=== PATIENT | male | born 1990 | race Hispanic/Latino ===

== ENCOUNTER → 2021-11-18 | Outpatient (CLI) | payer OTHER | END | disposition home or self-care (01) | LOC: ICE 10:00 | PROVIDERS: ATTEND Internal Medicine Cardiovascular Disease | DX: U07.1 COVID-19 (principal) | CPT/HCPCS: 87635; C9803 ==

== ENCOUNTER → 2023-05-18 | Outpatient (CLI) | payer OTHER | END | disposition home or self-care (01) | LOC: RAH 11:40 | PROVIDERS: ATTEND Internal Medicine | DX: J98.4 Other disorders of lung (principal); R05.3 Chronic cough | CPT/HCPCS: 71046 ==

== ENCOUNTER → 2023-05-19 | Outpatient (CLI) | payer OTHER ==
[2023-05-19 09:07] LABS: BASOPHILS # (AUTO) 0.06 K/uL (0.00-0.20); BASOPHILS % (AUTO) 0.8 % (0.0-5.0); EOSINOPHILS # (AUTO) 0.19 K/uL (0.00-0.70); EOSINOPHILS % (AUTO) 2.5 % (0.0-8.0); HEMATOCRIT 46.6 % (42-54); IMMATURE GRANULOCYTE ABSOLUTE 0.03 K/uL (0-1); LYMPHOCYTES # (AUTO) 2.3 K/uL (1.0-4.8); LYMPHOCYTES % (AUTO) 31.4 % (21.0-51.0); MEAN CORPUSCULAR HEMOGLOBIN 28.7 pg (27.0-33.0); MEAN CORPUSCULAR VOLUME 82.2 fL (79-99); MONOCYTES # (AUTO) 0.6 K/uL (0.1-1.0); MONOCYTES % (AUTO) 7.9 % (3.0-13.0); NEUTROPHILS # (AUTO) 4.3 K/uL (1.8-7.7); PLATELET COUNT (AUTO) 291 K/uL (130-400); RED BLOOD CELL COUNT(AUTO) 5.67 MIL/uL (4.50-6.20); RED CELL DISTRIBUTION WIDTH 12.7 % (11.0-15.5); WHITE BLOOD COUNT (AUTO) 7.5 K/uL (4.8-10.8)
[2023-05-19 09:11] LABS: APPEARANCE,URINE CLEAR (CLEAR); BILIRUBIN,URINE NEGATIVE (NEGATIVE); COLOR,URINE LIGHT-YELLOW (YELLOW); GLUCOSE, URINE (UA) NEGATIVE (NEGATIVE); KETONES,URINE NEGATIVE (NEGATIVE); LEUKOCYTE ESTERASE ,URINE NEGATIVE Leu/uL (NEGATIVE); NITRATE,URINE NEGATIVE (NEGATIVE); OCCULT BLOOD,URINE NEGATIVE (NEGATIVE); PROTEIN,URINE NEGATIVE (NEGATIVE); UROBILINOGEN,URINE 0.2 mg/dL (0.2-1.0)
[2023-05-19 09:12] LABS: ADD UA MICROSCOPIC NO
[2023-05-19 09:12] LABS: HEMOGLOBIN A1C 5.6 % (4.0-6.0)
[2023-05-19 09:16] LABS: CREATININE,URINE RANDOM 94 mg/dL (30-135)
[2023-05-19 09:46] LABS: ALBUMIN 3.9 g/dL (3.5-5.0); BILIRUBIN,DIRECT 0.1 mg/dL (0.0-0.3); BILIRUBIN,TOTAL 0.6 mg/dL (0.2-1.0); CREATININE 0.7 mg/dL (0.5-1.5); POTASSIUM 3.7 mmol/L (3.5-5.1); THYROID STIMULATING HORMONE 3.08 uIU/mL (0.36-3.74); TOTAL PROTEIN, SERUM 7.6 g/dL (6.0-8.3); URIC ACID 5.7 mg/dL (2.6-7.2)
== END | disposition home or self-care (01) ==
LOC: LAB 08:24
PROVIDERS: ATTEND Internal Medicine
DX: Z13.220 Encounter for screening for lipoid disorders (principal); Z13.1 Encounter for screening for diabetes mellitus; E55.9 Vitamin D deficiency, unspecified; E53.8 Deficiency of other specified B group vitamins; J30.9 Allergic rhinitis, unspecified; I10 Essential (primary) hypertension; R53.83 Other fatigue; R05.1 Acute cough
CPT/HCPCS: 36415; 80053; 80061; 81003; 82248; 82306; 82570; 82607; 83036; 84443; 84550; 85025

== ENCOUNTER → 2023-07-12 | Outpatient (CLI) | payer OTHER ==
[2023-07-12 10:57] LABS: SARS-CoV-2, RNA, NAAT NEGATIVE SARS CoV-2 (NEGATIVE)
== END | disposition home or self-care (01) ==
LOC: LAB 10:11
PROVIDERS: ATTEND Hospitalist
DX: Z11.52 Encounter for screening for COVID-19 (principal); Z20.822 Contact with and (suspected) exposure to COVID-19
CPT/HCPCS: 87635

== ENCOUNTER 2024-03-13 05:00 | Inpatient (IN) | payer OTHER ==
[~2024-03-13] VITALS: Ht 175.3 cm; Wt 119.3 kg
[2024-03-13 06:19] LABS: BASOPHILS # (AUTO) 0.05 K/uL (0.00-0.20); BASOPHILS % (AUTO) 0.2 % (0.0-5.0); EOSINOPHILS # (AUTO) 0.01 K/uL (0.00-0.70); HEMATOCRIT 50.3 % (42-54); IMMATURE GRANULOCYTE ABSOLUTE 0.08 K/uL (0-1); LYMPHOCYTES # (AUTO) 0.7 K/uL (1.0-4.8); LYMPHOCYTES % (AUTO) 3.3 % (21.0-51.0); MEAN CORPUSCULAR HEMOGLOBIN 28.2 pg (27.0-33.0); MEAN CORPUSCULAR VOLUME 80.5 fL (79-99); MONOCYTES # (AUTO) 0.6 K/uL (0.1-1.0); MONOCYTES % (AUTO) 2.9 % (3.0-13.0); NEUTROPHILS # (AUTO) 18.9 K/uL (1.8-7.7); NEUTROPHILS % (AUTO) 93.2 % (40.0-77.0); PLATELET COUNT (AUTO) 386 K/uL (130-400); RED BLOOD CELL COUNT(AUTO) 6.25 MIL/uL (4.50-6.20); RED CELL DISTRIBUTION WIDTH 13.1 % (11.0-15.5); WHITE BLOOD COUNT (AUTO) 20.4 K/uL (4.8-10.8)
[2024-03-13] MEDS: ondanSETRON 4MG INJ IVP ONE (06:29)
[2024-03-13] MEDS: MAG/ALUM/SIMETH 30 ML UDCUP PO ONE (06:29)
[2024-03-13] MEDS: PANTOPrazole 40 MG/VIAL IVP ONE (06:29)
[2024-03-13] MEDS: LIDOCAINE HCL 2% VISCOUS 15 ML UDCUP PO ONE (06:29)
[2024-03-13] MEDS: LACTATED RINGERS 1000ML 1,000 ML IV ONE (06:30)
[2024-03-13 06:45] LABS: ALBUMIN 4.3 g/dL (3.5-5.0); BILIRUBIN,TOTAL 0.7 mg/dL (0.2-1.0); CREATININE 1.2 mg/dL (0.5-1.3); POTASSIUM 3.7 mmol/L (3.5-5.1); TOTAL PROTEIN, SERUM 8.5 g/dL (6.0-8.3)
[2024-03-13 07:02] LABS: SARS-CoV-2, RNA, NAAT NEGATIVE SARS CoV-2 (NEGATIVE)
[2024-03-13 07:07] LABS: INFLUENZA TYPE A Negative For Type A (NEGATIVE); INFLUENZA TYPE B Negative For Type B (NEGATIVE)
[2024-03-13 08:00] LABS: APPEARANCE,URINE CLOUDY (CLEAR); BILIRUBIN,URINE NEGATIVE (NEGATIVE); COLOR,URINE YELLOW (YELLOW); GLUCOSE, URINE (UA) 30 mg/dL (NEGATIVE); KETONES,URINE 5 mg/dL (NEGATIVE); LEUKOCYTE ESTERASE ,URINE NEGATIVE Leu/uL (NEGATIVE); NITRATE,URINE NEGATIVE (NEGATIVE); OCCULT BLOOD,URINE NEGATIVE (NEGATIVE); PH,URINE 5.5 (5.0-8.0); PROTEIN,URINE 100 mg/dL (NEGATIVE); UROBILINOGEN,URINE 0.2 mg/dL (0.2-1.0)
[2024-03-13 08:16] LABS: BACTERIA,URINE FEW /HPF (None Seen); HYALINE CASTS, URINE >100 /LPF (0-1 /LPF); MUCUS,URINE MANY LPF (None Seen); SQUAMOUS EPITHELIAL CELL,UR RARE /HPF (0-2)
[2024-03-13] MEDS: 0.9%NACL 1000ML 708 ML IV ONE (08:24)
[2024-03-13] MEDS ORDERED: ondanSETRON 4MG INJ IVP PRN (08:30)
[2024-03-13] MEDS: DEXTROSE 5 %-0.45 % NACL 1,000 ML IV SCH (08:30)
[2024-03-13] MEDS: cefTRIAXone 1G VIAL IVPB SCH (08:42)
[2024-03-13] MEDS: PANTOPrazole 40 MG/VIAL IVP SCH (08:42)
[2024-03-13] MEDS ORDERED: MELO-108 PO (08:53)
[2024-03-13] MEDS ORDERED: AMLO-257 PO (08:53)
[2024-03-13] MEDS ORDERED: PHEN37.596 PO (08:53)
[2024-03-13] MEDS ORDERED: PANT40TA54 PO (08:53)
[2024-03-13 10:15] VITALS: BP 159/93; PULSE 128; RESP 22; TEMP 98.6
[2024-03-13 10:58] VITALS: O2SAT 98
[2024-03-13 11:50] VITALS: BP 103/81; PULSE 118; RESP 20; TEMP 98.9
[2024-03-13 15:40] VITALS: BP 132/86; PULSE 113; RESP 20; TEMP 98.3
[2024-03-13 20:00] VITALS: BP 144/86; PULSE 110; RESP 20; TEMP 110; O2SAT 98
[2024-03-14 00:10] VITALS: BP 148/89; PULSE 115; RESP 22; TEMP 98.2
[2024-03-14 04:37] LABS: BASOPHILS # (AUTO) 0.03 K/uL (0.00-0.20); BASOPHILS % (AUTO) 0.4 % (0.0-5.0); EOSINOPHILS # (AUTO) 0.16 K/uL (0.00-0.70); HEMATOCRIT 44.3 % (42-54); IMMATURE GRANULOCYTE ABSOLUTE 0.03 K/uL (0-1); LYMPHOCYTES # (AUTO) 1.3 K/uL (1.0-4.8); LYMPHOCYTES % (AUTO) 15.7 % (21.0-51.0); MEAN CORPUSCULAR HEMOGLOBIN 27.5 pg (27.0-33.0); MEAN CORPUSCULAR HGB CONC 33.4 g/dL (32.0-36.0); MEAN CORPUSCULAR VOLUME 82.3 fL (79-99); MONOCYTES % (AUTO) 12.8 % (3.0-13.0); NEUTROPHILS # (AUTO) 5.5 K/uL (1.8-7.7); NEUTROPHILS % (AUTO) 68.7 % (40.0-77.0); PLATELET COUNT (AUTO) 282 K/uL (130-400); RED BLOOD CELL COUNT(AUTO) 5.38 MIL/uL (4.50-6.20); RED CELL DISTRIBUTION WIDTH 13.3 % (11.0-15.5); WHITE BLOOD COUNT (AUTO) 8.1 K/uL (4.8-10.8)
[2024-03-14 04:50] LABS: ALBUMIN 3.3 g/dL (3.5-5.0); BILIRUBIN,TOTAL 0.6 mg/dL (0.2-1.0); CREATININE 1.1 mg/dL (0.5-1.3); MAGNESIUM 1.7 mg/dL (1.80-2.40); TOTAL PROTEIN, SERUM 6.7 g/dL (6.0-8.3)
[2024-03-14 05:03] LABS: POTASSIUM 2.8 mmol/L (3.5-5.1)
[2024-03-14] MEDS: acetaMINOPHEN 325 MG TAB PO PRN (05:42)
[2024-03-14] MEDS: PoTASSium chloRIDE 20MEQ/100ML 100 ML IV PRN (07:13)
[2024-03-14 07:30] VITALS: BP 154/91; PULSE 94; RESP 22; TEMP 98.4
[2024-03-14] MEDS ORDERED: PoTASSium chl 10% ELIXIR 20MEQ 20 MEQ/15 ML UDCUP PO PRN (07:30)
[2024-03-14 09:00] VITALS: O2SAT 98
[2024-03-14] MEDS: PHENTERMINE HCL 37.5 MG PO SCH (09:00)
[2024-03-14] MEDS: amLODIPine 5 MG TAB PO SCH (09:51)
[2024-03-14] MEDS: PoTASSium chloRIDE 20MEQ ER 20 MEQ ERTAB PO PRN (09:51)
[2024-03-14] MEDS: MELOXICAM 7.5 MG TABLET PO SCH (09:52)
[2024-03-14 11:51] VITALS: BP 162/93; PULSE 100; RESP 22; TEMP 98.2
[2024-03-14 15:30] VITALS: BP 122/76; PULSE 80; RESP 18; TEMP 98.6
[2024-03-14] MEDS: MAGNESIUM 2GM PREMIX 50ML 50 ML IV PRN (16:21)
[2024-03-14 20:00] VITALS: BP 128/72; PULSE 93; RESP 18; TEMP 98.5
[2024-03-15] VITALS: BP 135/79; PULSE 84; RESP 20; TEMP 97.6
[2024-03-15 04:00] VITALS: BP 128/76; PULSE 83; RESP 18; TEMP 98
[2024-03-15 07:42] VITALS: BP 130/86; PULSE 98; RESP 19; TEMP 98.8
[2024-03-15 08:09] LABS: CREATININE 0.9 mg/dL (0.5-1.3); POTASSIUM 3.5 mmol/L (3.5-5.1)
[2024-03-15] MEDS: PoTASSium chloRIDE 20MEQ ER 20 MEQ ERTAB PO ONE (08:41)
[2024-03-16 08:17] LABS: C DIFFICILE TOXIN A/B Not Detected (Not Detected); ENTEROAGGREGATIVE ECOLI Not Detected (Not Detected); GIARDIA LAMBLIA Not Detected (Not Detected); PLESIOMONAS SHIGELOIDES Not Detected (Not Detected); SAPOVIRUS Not Detected (Not Detected); SHIGELLA/ENTEROINVASIVE E COLI Detected (Not Detected); VIBRIO Not Detected (Not Detected); VIBRIO CHOLERAE Not Detected (Not Detected)
== END 2024-03-15 09:00 | disposition home or self-care (01) | DRG 641 ==
LOC: EDH 05:00 → OBSVTOIN 08:25 → EDHIP 08:25 → 4DH 09:39
PROVIDERS: ADMIT Internal Medicine; ATTEND Internal Medicine
DX: E86.0 Dehydration (principal); K52.9 Noninfective gastroenteritis and colitis, unspecified; Z20.822 Contact with and (suspected) exposure to COVID-19; E87.6 Hypokalemia; Z68.38 Body mass index [BMI] 38.0-38.9, adult; Z88.0 Allergy status to penicillin
CPT/HCPCS: 36415; 80048; 80053; 81001; 83690; 83735; 85025; 87086; 87507; 87635; 87804; 93005; 96375; G0378; J0696; J2405; J2470; J3475; J3480; J7120

== ENCOUNTER 2024-07-11 01:49 | Emergency (ER) | payer OTHER ==
[~2024-07-11] VITALS: Ht 175.3 cm; Wt 122.9 kg
[~2024-07-11 01:49] MED LIST: AMLO-257 PO; MELO-108 PO; PANT40TA54 PO; PHEN37.596 PO
[2024-07-11] MEDS: PANTOPrazole 40 MG/VIAL IVP ONE (03:27)
[2024-07-11] MEDS: hydrOXYzine 50MG VIAL 50 MG/ML VIAL IM STA (03:27)
[2024-07-11 03:29] LABS: BASOPHILS # (AUTO) 0.06 K/uL (0.00-0.20); BASOPHILS % (AUTO) 0.7 % (0.0-5.0); EOSINOPHILS % (AUTO) 1.1 % (0.0-8.0); HEMATOCRIT 45.3 % (42-54); IMMATURE GRANULOCYTE ABSOLUTE 0.02 K/uL (0-1); MEAN CORPUSCULAR HEMOGLOBIN 28.5 pg (27.0-33.0); MEAN CORPUSCULAR HGB CONC 35.3 g/dL (32.0-36.0); MEAN CORPUSCULAR VOLUME 80.6 fL (79-99); MONOCYTES # (AUTO) 0.7 K/uL (0.1-1.0); MONOCYTES % (AUTO) 8.4 % (3.0-13.0); NEUTROPHILS # (AUTO) 5.8 K/uL (1.8-7.7); NEUTROPHILS % (AUTO) 66.6 % (40.0-77.0); PLATELET COUNT (AUTO) 318 K/uL (130-400); RED BLOOD CELL COUNT(AUTO) 5.62 MIL/uL (4.50-6.20); RED CELL DISTRIBUTION WIDTH 12.7 % (11.0-15.5); WHITE BLOOD COUNT (AUTO) 8.7 K/uL (4.8-10.8)
[2024-07-11 03:37] LABS: APPEARANCE,URINE CLEAR (CLEAR); BILIRUBIN,URINE NEGATIVE (NEGATIVE); COLOR,URINE YELLOW (YELLOW); GLUCOSE, URINE (UA) NEGATIVE (NEGATIVE); KETONES,URINE NEGATIVE (NEGATIVE); LEUKOCYTE ESTERASE ,URINE NEGATIVE Leu/uL (NEGATIVE); NITRATE,URINE NEGATIVE (NEGATIVE); OCCULT BLOOD,URINE NEGATIVE (NEGATIVE); PH,URINE 5.5 (5.0-8.0); PROTEIN,URINE NEGATIVE (NEGATIVE); UROBILINOGEN,URINE 0.2 mg/dL (0.2-1.0)
[2024-07-11 03:42] LABS: ADD UA MICROSCOPIC NO
[2024-07-11 03:44] LABS: CREATININE 0.8 mg/dL (0.5-1.3); MAGNESIUM 2.1 mg/dL (1.80-2.40); POTASSIUM 3.5 mmol/L (3.5-5.1)
[2024-07-11 03:56] LABS: B-TYPE NATRIURETIC PEPTIDE < 5 pg/mL (0-100)
[2024-07-11] MEDS ORDERED: BUSP5TAB3 PO (04:11)
--- NOTE | 2024-07-11 04:11 | ERN ---
General Chief Complaint: Anxiety/Panic Attack Stated Complaint: C/O ANXIETY WITH CHEST DISCOMFORT Time Seen by MD: 01:51 Source: patient History of Present Illness Initial Comments Patient is a 33-year-old male coming in to be evaluated for anxiety. Patient states that his chest was hurting and he feels short of breath, this occurred earlier while arriving in the ER he states his symptoms have improved significantly. Allergies: Coded Allergies: Penicillins (Unverified Allergy, Unknown, 03/13/24) Home Meds Active Scripts Buspirone HCl (Buspirone HCl) 5 Mg Tablet, 1 TAB PO BID PRN for anxiety for 5 Days, #10 TAB 0 Refills Prov:DESIREE MEJIA MD 07/11/24 Reported Medications Phentermine HCl (Phentermine HCl) 37.5 Mg Tablet, 37.5 MG PO DAILY, TAB 03/13/24 Amlodipine Besylate (Amlodipine Besylate) 5 Mg Tablet, 5 MG PO DAILY, TAB 03/13/24 Meloxicam (Meloxicam) 15 Mg Tablet, 15 MG PO DAILY, TAB 03/13/24 Pantoprazole Sodium (Pantoprazole Sodium) 40 Mg Tablet.dr, 40 MG PO DAILY, TAB 03/13/24 Past Medical History Past Medical History: No Pertinent History Past Surgical History: None ROS Dictation CONSTITUTIONAL: No chills, no fever, no weakness, no diaphoresis, no malaise. HEAD/FACE: No signs of trauma. EENT: No eye pain, no blurred vision, no tearing, no double vision, no ear pain, no ear discharge, no nose pain, no nasal congestion, no throat pain, no throat swelling, no mouth pain. RESPIRATORY: No cough, no orthopnea, no SOB, no stridor, no wheezing. CARDIOVASCULAR: No chest pain, no edema, no palpitations, no syncope. GASTROINTESTINAL/ABDOMINAL: No abdominal pain, no constipation, no diarrhea, no nausea, no vomiting. GENITOURINARY: No abnormal discharge, no dysuria, no frequent urination, no hematuria. No complaints of pain in the genitals. MUSCULOSKELETAL: No back pain, no gout, no joint pain, no joint swelling, no muscle pain, no muscle stiffness, no neck pain. INTEGUMENTARY: No change in color, no change in hair/nails, no dryness, no lesion, no lumps, no rash. NEUROLOGICAL/PSYCH: No anxiety, not depressed, no emotional problem, no hea dache, no numbness, no pre-existing deficit, no history of seizures, no tremors, no weakness. HEMATOLOGIC/LYMPHATIC: Not anemic, no history of blood clots, no apparent bleeding, no bruising, glands not swollen. All Systems Negative, Except as Noted. Physical Exam Physical Exam Dictation VITAL SIGNS: Reviewed. GENERAL APPEARANCE: Alert, oriented x3, no acute distress, obese. HEAD AND FACE: Non-traumatic. EYES: PERRL, pink conjunctivas, eyelid no trauma, anterior chamber clear. EARS: Pinnas intact and no signs of trauma or erythema. Ear canals clear and no discharge. TMs no erythema. NOSE: No discharge, no bleeding. OROPHARYNX: Mouth normal, teeth no caries, tongue pink. Pharynx clear, no erythema. Tonsils no exudates, no abscesses noted. Mucous membrane moist. NECK: Supple, non-tender, no thyromegaly, no masses, no JVD, no bruits. BREAST: Deferred. CHEST: No tenderness, no crepitus, no paradoxical movement, no retractions. LUNGS: Clear, well-ventilated, symmetric, no rales, no wheezing, no rhonchi, no stridor, good breath sounds bilaterally. HEART: Regular rate, regular rhythm, no murmur, no gallops. VASCULAR: No peripheral edema. ABDOMEN: Soft, positive bowel sounds, nondistended, no guarding, nontender, no rebound, no masses no hepatomegaly, no splenomegaly, no Peterson's sign, no hernias. RECTAL: Deferred. GENITAL: Deferred. NEUROLOGICAL: Normal speech, gross motor function intact, gross sensory function intact. MUSCULOSKELETAL: Neck nontender, full range of motion, back nontender, full range of motion. EXTREMITIES: Nontender, full range of motion. SKIN: Color pink, dry, no turgor, no rash, no lacerations, no abrasions, no contusions. LYMPHATICS: Deferred. Results Laboratory and Microbiology Lab and Micro Result Laboratory Tests Test 07/11/24 03:20 07/11/24 03:25 07/11/24 03:52 White Blood Count 8.7 K/uL (4.8-10.8) Red Blood Count 5.62 MIL/uL (4.50-6.20) Hemoglobin 16.0 g/dL (14.0-18.0) Hematocrit 45.3 % (42-54) Mean Corpuscular Volume 80.6 fL (79-99) Mean Corpuscular Hemoglobin 28.5 pg (27.0-33.0) Mean Corpuscular Hemoglobin Concent 35.3 g/dL (32.0-36.0) Red Cell Distribution Width 12.7 % (11.0-15.5) Platelet Count 318 K/uL (130-400) Mean Platelet Volume 8.9 fL (7.5-10.5) Immature Granulocyte % (Auto) 0.2 % (0-1) Neutrophils (%) (Auto) 66.6 % (40.0-77.0) Lymphocytes (%) (Auto) 23.0 % (21.0-51.0) Monocytes (%) (Auto) 8.4 % (3.0-13.0) Eosinophils (%) (Auto) 1.1 % (0.0-8.0) Basophils (%) (Auto) 0.7 % (0.0-5.0) Neutrophils # (Auto) 5.8 K/uL (1.8-7.7) Lymphocytes # (Auto) 2.0 K/uL (1.0-4.8) Monocytes # (Auto) 0.7 K/uL (0.1-1.0) Eosinophils # (Auto) 0.10 K/uL (0.00-0.70) Basophils # (Auto) 0.06 K/uL (0.00-0.20) Absolute Immature Granulocyte (auto 0.02 K/uL (0-1) Nucleated Red Blood Cells 0.0 % (0.0-0.19) Sodium Level 139 mmol/L (136-145) Potassium Level 3.5 mmol/L (3.5-5.1) Chloride Level 101 mmol/L (101-111) Carbon Dioxide Level 29 mmol/L (21-32) Blood Urea Nitrogen 11 mg/dL (7-18) Creatinine 0.8 mg/dL (0.5-1.3) Glomerular Filtration Rate Calc 121 mL/min (>90) Random Glucose 107 mg/dL (70-105) H Total Calcium 9.1 mg/dL (8.5-10.1) Magnesium Level 2.10 mg/dL (1.80-2.40) Total Creatine Kinase 104 U/L (21-232) Troponin I High Sensitivity 5 ng/L (4-75) B-Type Natriuretic Peptide < 5 pg/mL (0-100) Urine Color YELLOW (YELLOW) Urine Appearance CLEAR (CLEAR) Urine pH 5.5 (5.0-8.0) Urine Specific [place] 1.025 (1.001-1.031) Urine Protein NEGATIVE mg/dL (NEGATIVE) Urine Glucose (UA) NEGATIVE mg/dL (NEGATIVE) Urine Ketones NEGATIVE mg/dL (NEGATIVE) Urine Occult Blood NEGATIVE (NEGATIVE) Urine Nitrate NEGATIVE (NEGATIVE) Urine Bilirubin NEGATIVE mg/dL (NEGATIVE) Urine Urobilinogen 0.2 mg/dL (0.2-1.0) Urine Leukocyte Esterase NEGATIVE Ankit/uL Influenza Type A Antigen Negative For Type A Influenza Type B Antigen Negative For Type B SARS-CoV-2, RNA, NAAT NEGATIVE SARS CoV-2 Labs Reviewed?: Yes EKG/XRAY/US/CT/MRI EKG Comment 07/11/2024 time 2:16 a.m. Ventricular rate 92 Sinus rhythm [place] [address] wave elevation or depression MDM MDM: Differential diagnosis: Anxiety, CHF, cough, URI, Patient is a 33-year-old gentleman coming in to be evaluated for anxiety. Patient states that the symptoms began earlier prior to arrival the ER. Arriv ing in the ER he states the symptoms had improved. Cardiac workup negative for acute findings. Patient was given an anxiolytic and states he feels much better. Patient will be discharged with a diagnosis of anxiety. ED Course Orders Procedure Category Date Status Time Cbc With Differential LAB 07/11/24 Complete 02:13 B-Type Natriuretic LAB 07/11/24 Complete Peptide 02:13 Chest 1vw RAD 07/11/24 Taken 02:13 12 Lead Ekg Tracing- EKG 07/11/24 Logged Technical 02:13 Magnesium LAB 07/11/24 Complete 02:13 Creatine Kinase, Total LAB 07/11/24 Complete 02:13 Troponin I High LAB 07/11/24 Complete Sensitivity 02:13 Urinalysis Profile LAB 07/11/24 Complete 02:13 Basic Metabolic Panel LAB 07/11/24 Complete 02:13 Covid Rna Naat LAB 07/11/24 Complete 02:13 Influenza Type A & B, LAB 07/11/24 Complete Rapid 02:13 Hydroxyzine 50mg Vial PHA 07/11/24 Complete (Atarax 50mg Inj) 02:13 Pantoprazole 40mg Inj PHA 07/11/24 Complete (Protonix 40mg Inj 02:30 Current Medications Medications (Trade) Dose Ordered Sig/Ashlee Route PRN Reason Start Time Stop Time Status Last Admin Dose Admin Hydroxyzine HCl (ATArax 50MG INJ) 25 mg ONCE STAT IM 07/11/24 02:13 07/11/24 02:14 DC 07/11/24 03:27 Pantoprazole Sodium (PROTonix 40MG INJ) 40 mg ONCE ONCE IVP 07/11/24 02:30 07/11/24 02:31 DC 07/11/24 03:27 Vital Signs Date Time Temp Pulse Resp B/P (MAP) Pulse Ox O2 Delivery O2 Flow Rate FiO2 07/11/24 01:50 97.9 96 20 137/86 99 Room Air DX & DISP Disposition: Discharge Departure Impression: Primary Impression: Anxiety Condition: Stable Scripts Buspirone HCl (Buspirone HCl) 5 Mg Tablet 1 TAB PO BID PRN for anxiety for 5 Days, #10 TAB 0 Refills Prov: DESIREE MEJIA MD 07/11/24 Additional Instructions: FOLLOW-UP WITH PRIMARY CARE PROVIDER IN 1 TO 2 DAYS. TAKE MEDICATIONS DIRECTED HERE IN THE EMERGENCY ROOM. OKAY TO CONTINUE HOME MEDICATIONS UNLESS OTHERWISE DISCUSSED DURING YOUR VISIT IN THE EMERGENCY ROOM TODAY. RETURN TO YOUR NEAREST EMERGENCY ROOM IF SYMPTOMS WORSEN OR IF THERE IS NO IMPROVEMENT. CALL 911 IF YOU NEED IMMEDIATE ASSISTANCE. TAKE TYLENOL [id number] NEEDED AND IF NO CONTRAINDICATIONS ARE PRESENT. INCREASE ORAL HYDRATION. A WOUND CULTURE OR URINE CULTURE WAS ORDERED HERE IN THE EMERGENCY ROOM DEPARTMENT PLEASE FOLLOW-UP WITH PRIMARY CARE PROVIDER AND ADVISE THEM TO GET REPEAT PORTS FROM OUR FACILITY. IF YOU HAD ANY TAHMINA WRAP/SPLINTS THAT WERE APPLIED HERE, PLEASE DO NOT REMOVE THEM UNTIL YOU SEE YOUR PRIMARY CARE OR SPECIALTY. Referrals: Referrals: SIOBHAN BAUMAN MD (PCP) Time of Disposition: 04:10 DESIREE MEJIA MD Jul 11, 2024 04:11
[2024-07-11 04:18] LABS: SARS-CoV-2, RNA, NAAT NEGATIVE SARS CoV-2 (NEGATIVE)
[2024-07-11 04:24] LABS: INFLUENZA TYPE A Negative For Type A (NEGATIVE); INFLUENZA TYPE B Negative For Type B (NEGATIVE)
[2024-07-11 04:35] VITALS: BP 132/65; PULSE 92; RESP 18; TEMP 98.5; O2SAT 100
--- NOTE | 2024-07-11 07:09 | EKG ---
[facility] Test Date: 2024-07-11 Test Time: 02:16:12 Pat Name: VAMSI SCOTT Department: [facility] Room: Gender: M [employer] Operator: [id number] 1990 Requested By: DESIREE MEJIA Order Number: [id number] Reading MD: Eric Talbot Measurements Intervals [place] Rate: 92 P: 27 DE: 136 QRS: -23 QRSD: 91 T: 39 QT: 346 QTc: 429 Interpretive Statements Sinus rhythm Compared to ECG 03/13/2024 07:08:35 Sinus tachycardia no longer present Electronically Signed On 07-11-2024 20:02:22 DANDY TENDER by Eric Talbot Please click the below link to view image of tracing.
--- NOTE | 2024-07-11 08:50 | HMCIMG ---
CHEST 1VW REASON: cp COMPARISON: 05/18/2023 FINDINGS: Single view of the chest was obtained. Lungs are clear. Heart size is normal. There is no pulmonary vascular congestion. Mediastinum and bony thorax appear unremarkable. IMPRESSION: 1. Normal single view chest x-ray.
== END 2024-07-11 04:40 | disposition home or self-care (01) ==
LOC: EDH 01:49
DX: F41.9 Anxiety disorder, unspecified (principal); Z79.1 Long term (current) use of non-steroidal anti-inflammatories (NSAID); Z79.899 Other long term (current) drug therapy; Z88.0 Allergy status to penicillin; Z20.822 Contact with and (suspected) exposure to COVID-19
CPT/HCPCS: 99285; 96374; 71045; 87635; 82550; 83735; 84484; 80048; 83880; 85025; 87804 ×2; 81003; 36415; 93005; 96372; J3410; J2470

== ENCOUNTER 2024-09-27 03:37 | Emergency (ER) | payer OTHER ==
[~2024-09-27] VITALS: Ht 175.3 cm; Wt 122.9 kg
[~2024-09-27 03:37] MED LIST changes: +BUSP5TAB3 PO
[2024-09-27 04:27] LABS: APPEARANCE,URINE CLEAR (CLEAR); BILIRUBIN,URINE NEGATIVE (NEGATIVE); COLOR,URINE LIGHT-YELLOW (YELLOW); GLUCOSE, URINE (UA) NEGATIVE (NEGATIVE); KETONES,URINE NEGATIVE (NEGATIVE); LEUKOCYTE ESTERASE ,URINE NEGATIVE Leu/uL (NEGATIVE); NITRATE,URINE NEGATIVE (NEGATIVE); OCCULT BLOOD,URINE NEGATIVE (NEGATIVE); PH,URINE 6.5 (5.0-8.0); PROTEIN,URINE NEGATIVE (NEGATIVE); UROBILINOGEN,URINE 0.2 mg/dL (0.2-1.0)
[2024-09-27 04:28] LABS: ADD UA MICROSCOPIC NO
--- NOTE | 2024-09-27 04:33 | ERN ---
General Chief Complaint: Abdominal Pain Stated Complaint: C/O EPIGASTRIC PAIN, SOB, NAUSEA, DIARRHEA Time Seen by MD: 04:29 History of Present Illness Initial Comments Patient is a 33-year-old male who had feeling of weirdness in his stomach early Tuesday morning and has had unremitting diarrhea nonbloody since then the pain is now throughout his entire stomach instead of being just subxiphoid. He states no fevers and and chills no upper respiratory tract infections beyond stuffy nose. He states he has been urinating more frequently but it is nonbloody. Allergies: Coded Allergies: Penicillins (Unverified Allergy, Unknown, 03/13/24) Home Meds Active Scripts Buspirone HCl (Buspirone HCl) 5 Mg Tablet, 1 TAB PO BID PRN for anxiety for 5 Days, #10 TAB 0 Refills Prov:DESIREE MEJIA MD 07/11/24 Reported Medications Phentermine HCl (Phentermine HCl) 37.5 Mg Tablet, 37.5 MG PO DAILY, TAB 03/13/24 Amlodipine Besylate (Amlodipine Besylate) 5 Mg Tablet, 5 MG PO DAILY, TAB 03/13/24 Meloxicam (Meloxicam) 15 Mg Tablet, 15 MG PO DAILY, TAB 03/13/24 Pantoprazole Sodium (Pantoprazole Sodium) 40 Mg Tablet.dr, 40 MG PO DAILY, TAB 03/13/24 Past Medical History Past Medical History: Anxiety, Hypertension Past Surgical History: None Constitutional: (-) chills, (-) diaphoresis, (-) fever, (-) malaise, (-) weakness, (-) other documentation EENTM: (-) eye pain, (-) blurred vision, (-) tearing, (-) double vision, (-) ear pain, (-) ear discharge, (-) nose pain, (-) nose congestion, (-) throat pain, (-) Throat swelling, (-) mouth pain, (-) tooth pain, (-) mouth swelling, (-) other documentation Respiratory: (-) cough, (-) orthopnea, (-) short of breath, (-) stridor, (-) wheezing, (-) other documentation Cardiovascular: (-) chest pain, (-) edema, (-) palpitations, (-) syncope, (-) dyspnea on exertion, (-) other documentation Gastrointestinal/Abdominal: (+) nausea, (+) diarrhea Musculoskeletal: (-) Neck pain, (-) back pain, (-) Flank Pain, (-) joint pain, (-) joint swelling, (-) muscle pain, (-) muscle stiffness, (-) gout, (-) other documentation Skin: (-) laceration, (-) contusion, (-) abrasion, (-) abscess, (-) rash, (-) change in color, (-) change in hair, (-) change in nails, (-) diaphoresis, (-) dryness, (-) other documentation Physical Exam General Appearance: (+) mild distress Orientation: (+) alert Head/Face Trauma: No Eye: bilateral eye normal inspection, bilateral eye PERRL, bilateral eye EOMI Ear, Nose, Throat: (+) hearing grossly normal, (+) normal ENT inspection Neck: (+) normal inspection, (+) supple Respiratory: (+) chest non-tender, (+) lungs clear Heart: (+) regular, (+) no gallop Vascular: (+) no edema Gastrointestinal: (+) soft, (+) non-tender, (+) bowel sound present Results Laboratory and Microbiology Lab and Micro Result Laboratory Tests Test 09/27/24 04:19 09/27/24 04:29 Urine Color LIGHT-YELLOW (YELLOW) Urine Appearance CLEAR (CLEAR) Urine pH 6.5 (5.0-8.0) Urine Specific [place] 1.020 (1.001-1.031) Urine Protein NEGATIVE mg/dL (NEGATIVE) Urine Glucose (UA) NEGATIVE mg/dL (NEGATIVE) Urine Ketones NEGATIVE mg/dL (NEGATIVE) Urine Occult Blood NEGATIVE (NEGATIVE) Urine Nitrate NEGATIVE (NEGATIVE) Urine Bilirubin NEGATIVE mg/dL (NEGATIVE) Urine Urobilinogen 0.2 mg/dL (0.2-1.0) Urine Leukocyte Esterase NEGATIVE Ankit/uL White Blood Count 8.8 K/uL (4.8-10.8) Red Blood Count 5.43 MIL/uL (4.50-6.20) Hemoglobin 15.5 g/dL (14.0-18.0) Hematocrit 45.1 % (42-54) Mean Corpuscular Volume 83.1 fL (79-99) Mean Corpuscular Hemoglobin 28.5 pg (27.0-33.0) Mean Corpuscular Hemoglobin Concent 34.4 g/dL (32.0-36.0) Red Cell Distribution Width 12.8 % (11.0-15.5) Platelet Count 283 K/uL (130-400) Mean Platelet Volume 8.4 fL (7.5-10.5) Immature Granulocyte % (Auto) 0.3 % (0-1) Neutrophils (%) (Auto) 73.2 % (40.0-77.0) Lymphocytes (%) (Auto) 16.7 % (21.0-51.0) L Monocytes (%) (Auto) 7.4 % (3.0-13.0) Eosinophils (%) (Auto) 1.7 % (0.0-8.0) Basophils (%) (Auto) 0.7 % (0.0-5.0) Neutrophils # (Auto) 6.5 K/uL (1.8-7.7) Lymphocytes # (Auto) 1.5 K/uL (1.0-4.8) Monocytes # (Auto) 0.7 K/uL (0.1-1.0) Eosinophils # (Auto) 0.15 K/uL (0.00-0.70) Basophils # (Auto) 0.06 K/uL (0.00-0.20) Absolute Immature Granulocyte (auto 0.03 K/uL (0-1) Nucleated Red Blood Cells 0.0 % (0.0-0.19) Sodium Level 140 mmol/L (136-145) Potassium Level 3.9 mmol/L (3.5-5.1) Chloride Level 103 mmol/L (101-111) Carbon Dioxide Level 29 mmol/L (21-32) Blood Urea Nitrogen 9 mg/dL (7-18) Creatinine 0.9 mg/dL (0.5-1.3) Glomerular Filtration Rate Calc 117 mL/min (>90) Random Glucose 139 mg/dL (70-105) H Total Calcium 8.7 mg/dL (8.5-10.1) Total Bilirubin 0.4 mg/dL (0.2-1.0) Aspartate Amino Transf (AST/SGOT) 13 U/L (10-37) Alanine Aminotransferase (ALT/SGPT) 28 U/L (12-78) Alkaline Phosphatase 100 U/L (50-136) Total Protein 7.5 g/dL (6.0-8.3) Albumin 3.9 g/dL (3.5-5.0) Amylase Level 32 U/L (25-115) Lipase 19 U/L (16-77) MDM Patient most likely has gastroenteritis. I will order a CBC a chemistry panel I will give him Zofran and I will give him fluids I feel no need for in imaging right now. A UA will also be so sent. Labs ordered at 4:32 a.m. Labs have all come back normal. No signs of infection no chemical abnormalities urine clean. Patient feels much better with the Zofran and a L of fluids and he is ready to go home. ED Course Orders Procedure Category Date Status Time Urinalysis Profile LAB 09/27/24 Complete 04:17 Cbc With Differential LAB 09/27/24 Complete 04:17 Comprehensive LAB 09/27/24 Complete Metabolic Panel 04:17 Lipase LAB 09/27/24 Complete 04:17 Amylase LAB 09/27/24 Complete 04:17 Lactated Ringers PHA 09/27/24 Complete 1000ml (Lactated 04:33 Urinalysis Profile LAB 09/27/24 Logged 04:33 Ondansetron 4mg Inj PHA 09/27/24 Complete (Zofran 4mg Inj) 05:30 Lidocaine Hcl 2% PHA 09/27/24 Complete Viscous (Lidocaine Hcl 06:00 Mag/Alum/Simeth 30ml PHA 09/27/24 Complete (Maalox Plus 30ml) 06:00 Dicyclomine Hcl PHA 09/27/24 Complete (Bentyl 10mg/5ml 06:00 Current Medications Medications (Trade) Dose Ordered Sig/Ashlee Route PRN Reason Start Time Stop Time Status Last Admin Dose Admin Al Hydroxide/Mg Hydroxide (MAALox PLUS 30ML) 30 ml ONCE ONCE PO 09/27/24 06:00 09/27/24 06:01 DC 09/27/24 05:54 Dicyclomine HCl (Bentyl 10mg/5ml Syrup) 10 mg ONCE ONCE PO 09/27/24 06:00 09/27/24 06:01 DC 09/27/24 05:54 Lactated Ringer's (Lactated Ringers 1000ml) 1,000 ml BOLUS STAT IV 09/27/24 04:33 09/27/24 04:35 DC 09/27/24 05:14 Lidocaine HCl (Lidocaine HCl 2% Viscous) 10 ml ONCE ONCE PO 09/27/24 06:00 09/27/24 06:01 DC 09/27/24 05:54 Ondansetron HCl (zoFRAN 4MG INJ) 4 mg ONCE ONCE IVP 09/27/24 05:30 09/27/24 05:31 DC 09/27/24 05:14 Vital Signs Date Time Temp Pulse Resp B/P (MAP) Pulse Ox O2 Delivery O2 Flow Rate FiO2 09/27/24 06:02 98.4 85 18 134/90 99 Room Air* 0 21 09/27/24 03:39 97.7 99 20 155/105 100 Room Air DX & DISP Disposition: Discharge Departure Impression: Primary Impression: Gastroenteritis Condition: Stable Additional Instructions: Please come back if you have intractable vomiting abdominal pain again inability to eat or drink fluids and stay hydrated. Referrals: SIOBHNA BAUMAN MD (PCP) LUPE WHITE MD Sep 27, 2024 04:32
[2024-09-27 04:37] LABS: BASOPHILS # (AUTO) 0.06 K/uL (0.00-0.20); BASOPHILS % (AUTO) 0.7 % (0.0-5.0); EOSINOPHILS # (AUTO) 0.15 K/uL (0.00-0.70); EOSINOPHILS % (AUTO) 1.7 % (0.0-8.0); HEMATOCRIT 45.1 % (42-54); IMMATURE GRANULOCYTE ABSOLUTE 0.03 K/uL (0-1); LYMPHOCYTES # (AUTO) 1.5 K/uL (1.0-4.8); LYMPHOCYTES % (AUTO) 16.7 % (21.0-51.0); MEAN CORPUSCULAR HEMOGLOBIN 28.5 pg (27.0-33.0); MEAN CORPUSCULAR HGB CONC 34.4 g/dL (32.0-36.0); MEAN CORPUSCULAR VOLUME 83.1 fL (79-99); MONOCYTES # (AUTO) 0.7 K/uL (0.1-1.0); MONOCYTES % (AUTO) 7.4 % (3.0-13.0); NEUTROPHILS # (AUTO) 6.5 K/uL (1.8-7.7); NEUTROPHILS % (AUTO) 73.2 % (40.0-77.0); PLATELET COUNT (AUTO) 283 K/uL (130-400); RED BLOOD CELL COUNT(AUTO) 5.43 MIL/uL (4.50-6.20); RED CELL DISTRIBUTION WIDTH 12.8 % (11.0-15.5); WHITE BLOOD COUNT (AUTO) 8.8 K/uL (4.8-10.8)
[2024-09-27 04:56] LABS: CREATININE 0.9 mg/dL (0.5-1.3); POTASSIUM 3.9 mmol/L (3.5-5.1)
[2024-09-27 04:59] LABS: ALBUMIN 3.9 g/dL (3.5-5.0); BILIRUBIN,TOTAL 0.4 mg/dL (0.2-1.0); TOTAL PROTEIN, SERUM 7.5 g/dL (6.0-8.3)
[2024-09-27] MEDS: ondanSETRON 4MG INJ IVP ONE (05:14)
[2024-09-27] MEDS: LACTATED RINGERS 1000ML IV STA (05:14)
[2024-09-27] MEDS: LIDOCAINE HCL 2% VISCOUS 15 ML UDCUP PO ONE (05:54)
[2024-09-27] MEDS: MAG/ALUM/SIMETH 30 ML UDCUP PO ONE (05:54)
[2024-09-27] MEDS: DICYCLOMINE HCL 10 MG/5 ML ML PO ONE (05:54)
[2024-09-27 06:02] VITALS: BP 134/90; PULSE 85; RESP 18; TEMP 98.4; O2SAT 99
== END 2024-09-27 06:45 | disposition home or self-care (01) ==
LOC: EDH 03:37
DX: K52.9 Noninfective gastroenteritis and colitis, unspecified (principal); I10 Essential (primary) hypertension; F41.9 Anxiety disorder, unspecified; Z79.1 Long term (current) use of non-steroidal anti-inflammatories (NSAID); Z79.899 Other long term (current) drug therapy; Z88.0 Allergy status to penicillin
CPT/HCPCS: 99284; 96374; 96361; 82150; 80053; 83690; 85025; 81003; 36415; J7120; J2405

== ENCOUNTER → 2024-12-28 | Outpatient (CLI) | payer OTHER ==
[2024-12-28 22:04] VITALS: PULSE 88; RESP 12
[2024-12-28 22:30] VITALS: PULSE 88; RESP 20
[2024-12-28 23:00] VITALS: PULSE 80; RESP 6
[2024-12-28 23:30] VITALS: PULSE 84; RESP 4
[2024-12-29] VITALS (11 sets, daily range): PULSE 70–82; RESP 6–16
== END | disposition home or self-care (01) ==
LOC: SLP 20:21
PROVIDERS: ATTEND Internal Medicine
DX: G47.30 Sleep apnea, unspecified (principal)
CPT/HCPCS: 95811

== ENCOUNTER → 2025-02-07 | Outpatient (CLI) | payer OTHER | END | disposition home or self-care (01) | LOC: LAB 10:01 | PROVIDERS: ATTEND Hospitalist | DX: Z20.822 Contact with and (suspected) exposure to COVID-19 (principal) | CPT/HCPCS: 87426 ==